=== PATIENT | male | born 1955 | race Two or more races ===

== ENCOUNTER 2018-01-14 10:59 | Inpatient (IN) | payer OTHER ==
[~2018-01-14] VITALS: Ht 170.2 cm; Wt 66.7 kg
--- NOTE | 2018-01-14 11:00 | NUR ---
BIB DT ABDOMINAL PAIN, 07/30, NON RADIATING SINCE TODAY. PATIENT IS AWAKE AND ALERT. APPEARS IN NO DISTRESS. SKIN IS WARM TO TOUCH AND NON DIAPHPORETIC. PATIENT IS AFEBRILE. VSS. LAST HD YESTERDAY.
[2018-01-14 11:40] LABS: BASOPHILS % (AUTO) 0.2 % (0.0-2.0); EOSINOPHILS % (AUTO) 0.5 % (0.0-6.0); HEMATOCRIT 35 % (39-51); HEMOGLOBIN 12.3 g/dL (13.5-17.5); LYMPHOCYTES # (AUTO) 1.2 /CMM (0.8-4.8); LYMPHOCYTES % (AUTO) 9.4 % (20.0-44.0); MEAN CORPUSCULAR HGB CONC 35 g/dl (31.0-36.0); MEAN CORPUSCULAR VOLUME 93 fL (80-96); MONOCYTES # (AUTO) 0.7 /CMM (0.1-1.30); MONOCYTES % (AUTO) 5.6 % (2.0-12.0); NEUTROPHILS # (AUTO) 11.2 /CMM (1.8-8.9); NEUTROPHILS % (AUTO) 84.3 % (43.0-81.0); PLATELET COUNT (AUTO) 234 /CMM (150-450); RDW COEFFICIENT OF VARIATION 14.3 (11.5-15.0); WHITE BLOOD COUNT (AUTO) 13.2 K/uL (4.3-11.0)
[2018-01-14] MEDS ORDERED: MORPHINE SULFATE INJ 4 MG/ML DISP.SYRIN ONE ×2 (11:41→12:46)
[2018-01-14] MEDS ORDERED: ONDANSETRON HCL/PF 4 MG/2 ML VIAL ONE (11:41)
[2018-01-14 11:55] LABS: INR 0.86 (0.85-1.15)
[2018-01-14] MEDS ORDERED: MORPHINE SULFATE INJ 2 MG/ML DISP.SYRIN IV ONE ×2 (12:00→13:00)
[2018-01-14] MEDS ORDERED: ONDANSETRON HCL/PF 4 MG/2 ML VIAL IVP ONE (12:00)
[2018-01-14] MEDS ORDERED: IV NS 0.9% 1,000 ML BAG IV ONE (12:00)
[2018-01-14 12:02] LABS: ALANINE AMINOTRANSFERASE 48 U/L (12-78); ALBUMIN 4.2 g/dL (3.4-5.0); ALKALINE PHOSPHATASE 123 U/L (46-116); ASPARTATE AMINOTRANSFERASE 58 U/L (15-37); BILIRUBIN,DIRECT 0.3 mg/dL (0.0-0.2); CALCIUM, SERUM 10.3 mg/dL (8.5-10.1); CARBON DIOXIDE 24 mmol/L (21-32); CHLORIDE 93 mmol/L (98-107); LIPASE 111 U/L (73-393); POTASSIUM 4.6 mmol/L (3.5-5.1); SODIUM SERUM 132 mmol/L (136-145); TOTAL PROTEIN, SERUM 8.8 g/dL (6.4-8.2); UREA NITROGEN, BLOOD 45 mg/dL (7-18)
[2018-01-14 12:04] LABS: GLUCOSE 388 mg/dL (74-106)
[2018-01-14 12:05] LABS: TROPONIN I < 0.017 ng/mL (0.00-0.056)
[2018-01-14 12:12] LABS: APPEARANCE,URINE Clear (CLEAR); BILIRUBIN,URINE Negative (NEGATIVE); BLOOD, URINE Trace-lysed Ery/uL (NEGATIVE); COLOR,URINE Yellow (YELLOW); KETONES,URINE Negative (NEGATIVE); LEUKOCYTE ESTERASE ,URINE Negative (NEGATIVE); NITRITE, URINE Negative (NEGATIVE); PH,URINE 8.5 (5.0-8.0); PROTEIN,URINE >=300 mg/dl (NEGATIVE); UGLUCOSE 250 MG/DL mg/dL (NEGATIVE); UROBILINOGEN,URINE 0.2 EU/dL (0.2)
[2018-01-14] MEDS ORDERED: INSULIN REGULAR, HUMAN 100 UNIT/ML 10 ML VIAL ONE (12:14)
[2018-01-14 12:21] LABS: BACTERIA,URINE None seen /HPF (None Seen); WBC,URINE 0-3 /HPF (0-3)
[2018-01-14 12:22] LABS: HYALINE CASTS, URINE Rare /LPF (None Seen); SPERM,URINE Few /HPF (None Seen); SQUAMOUS EPITHELIAL CELL,UR Few /HPF (None Seen)
[2018-01-14] MEDS ORDERED: INSULIN REGULAR, HUMAN 100 UNIT/ML 10 ML VIAL SQ ONE (12:30)
[2018-01-14] MEDS ORDERED: MORPHINE SULFATE INJ 2 MG/ML DISP.SYRIN ONE (12:46)
[2018-01-14] MEDS ORDERED: PIPERACILLIN /TAZOBACTAM 3.375 G in IV D5W 50 ML IV STA (13:08)
--- NOTE | 2018-01-14 13:41 | NUR ---
CALLED DR CAPONE [facility] [employer].
[2018-01-14] MEDS ORDERED: CALC667C6 PO (14:05)
[2018-01-14] MEDS ORDERED: INSU100I26 SQ (14:05)
[2018-01-14] MEDS ORDERED: PANT40TA4 PO (14:05)
[2018-01-14] MEDS ORDERED: CARV12.52 PO (14:05)
[2018-01-14] MEDS ORDERED: CHOL200026 PO (14:05)
[2018-01-14] MEDS ORDERED: FURO40TA5 PO (14:05)
[2018-01-14] MEDS ORDERED: FOLI1TAB16 PO (14:05)
[2018-01-14] MEDS ORDERED: ASPI-1169 PO (14:05)
[2018-01-14] MEDS ORDERED: AMLO10TA6 PO (14:05)
[2018-01-14] MEDS ORDERED: ALLO100T PO (14:05)
[2018-01-14] MEDS ORDERED: HYDR-4076 PO (14:05)
[2018-01-14] MEDS ORDERED: MAGNESIUM HYDROXIDE 30 ML UDC PO PRN (14:30)
[2018-01-14] MEDS ORDERED: MAG HYDROX/AL HYDROX/SIMETH 30 ML UDC PO PRN (14:30)
[2018-01-14] MEDS ORDERED: ACETAMINOPHEN 325 MG TABLET PO PRN (14:30)
[2018-01-14] MEDS ORDERED: Z GUARD REMEDY 2 OZ OINT TP PRN (14:30)
[2018-01-14] MEDS ORDERED: DEXTROSE 50%-WATER 50 ML DISP.SYRIN IV PRN (14:30)
[2018-01-14 15:00] VITALS: BP 137/65
--- NOTE | 2018-01-14 15:00 | NUR ---
ms director international notes Admitted a 62 years old male patient who came in due to cholecystitis. patient is admitted by Dr. zimmerman, all orders on file. Skin assessment done and no skin issues noted. Patient is NPO due to diagnosis. Patient is alert and oriented x 4, serbian speaking only, caregiver Janeth at bedside. IV intact and patent, Right chest wall HD cath, dressing intact. patient in pain noted, received pain mediation in the ER. Informed MD for pain medication IV and ordered Morphine 2 mg Q4hrs PRN for pain. All orders carried out and noted. Keep patient clean and comfortable in bed, call light with in patient reach.
[2018-01-14 16:00] VITALS: BP 137/65
[2018-01-14] MEDS: MORPHINE SULFATE INJ 4 MG/ML DISP.SYRIN IV PRN ×2 (16:36→20:36)
[2018-01-14] MEDS: BLOOD SUGAR DIAGNOSTIC 1 EACH STRIP VI SCH ×2 (17:37→21:34)
[2018-01-14] MEDS: ZOSYN IVPB 2.25 G in IV D5W 50ml IV SCH ×2 (17:37→23:02)
--- NOTE | 2018-01-14 18:00 | NUR ---
ms rn notes Blood sugar checked 430 informed MD and per MD okay to give 15 units even patient is NPO. All orders carried out and noted.
[2018-01-14] MEDS: INSULIN REGULAR, HUMAN 100 UNIT/ML 3 ML VIAL SQ PRN (18:19)
[2018-01-14] MEDS: CALCIUM ACETATE 667 MG TABLET PO SCH (18:30)
--- NOTE | 2018-01-14 19:18 | NUR ---
MS RN NOTES: DR. CAPONE AT BEDSIDE.
--- NOTE | 2018-01-14 19:22 | NUR ---
ms rn closing notes All needs provided, attended, and anticipated. Endorsed to next shift RN to continue care. Patient in stable condition.
--- NOTE | 2018-01-14 19:35 | NUR ---
MS RN NOTES: RECEIVED PT IN BED AND IS AWAKE. PT BRAZILIAN SPEAKING ONLY. PT A/OX4. PT ON ROOM AIR AND TOLERATING WELL. PT HAS IV AND IS PATENT AND INTACT. CHECKED BLOOD SUGAR PER AM CHARGE NURSE'S REQUEST. BLOOD SUGAR LESS THAN 400. WILL RECHECK AGAIN ORDERED. CALL LIGHT WITHIN PT'S REACH. BED KEPT NI LOW, LOCKED POSITION, AND SIDE RAILS X 2UP. WILL CONTINUE TO MONITOR PT. Addendum: 01/14/18 at 1944 by MARGIE RICHARDS RN PT ALSO HAS R CHEST WALL HD CATH AND IS INTACT. PT INFORMED THAT HE IS NPO.
[2018-01-14 20:00] VITALS: BP 109/68
--- NOTE | 2018-01-14 20:36 | NUR ---
MS RN NOTES: PT COMPLAINING OF 10/10 ABDOMEN PAIN. PT WAS ADMINISTERED MORPHINE 2MG VIA IV. WILL CONTINUE TO MONITOR PT.
--- NOTE | 2018-01-14 21:56 | NUR ---
MS RN NOTES: TALKED TO DR. LIMA. INFORMED HIM BLOOD SUGAR 383. INFORMED HIM PT IS NPO AND HAS PROCEDURE TOMORROW 1600 FOR LAP VINEY. PT NOT ON ANY FLUIDS. PER CLARENCE, GIVE TOTAL OF 20 UNITS. WILL CONTINUE TO MONITOR PT. NO OTHER NEW ORDERS.
[2018-01-14] MEDS ORDERED: ZOLPIDEM TARTRATE 5 MG TABLET PO PRN (22:00)
[2018-01-14] MEDS: *INSULIN REGULAR(HUMULIN R)HUM 100 UNIT/ML VIAL SQ PRN (22:00)
--- NOTE | 2018-01-14 22:06 | NUR ---
RN NOTES: HAD TO MANUALLY ADMIN INSULIN SINCE "HS" ONE WOULD NOT SCAN.
--- NOTE | 2018-01-14 22:20 | NUR ---
RN NOTES: HAD TO MANUALLY ADMIN ADDITION 10 UNITS OF INSULIN SINCE IT WON'T SCAN AND IT IS 1 TIME ORDER PER CLARENCE.
[2018-01-14] MEDS ORDERED: INSULIN REGULAR, HUMAN 100 UNIT/ML 3 ML VIAL SQ ONE (22:30)
[2018-01-15 00:55] VITALS: BP 101/60
[2018-01-15] MEDS: MORPHINE SULFATE INJ 4 MG/ML DISP.SYRIN IV PRN ×2 (01:00→06:16)
--- NOTE | 2018-01-15 01:02 | NUR ---
MS RN NOTES: PT COMPLAINING OF 10/10 ABDOMEN PAIN. PT WAS ADMINISTERED MORPHINE 2MG IV. WILL CONTINUE TO MONITOR PT.
[2018-01-15] MEDS: ONDANSETRON HCL/PF 4 MG/2 ML VIAL IVP PRN ×2 (03:24→22:23)
--- NOTE | 2018-01-15 03:25 | NUR ---
RN NOTES: PT COMPLAINING OF NAUSEA. PT WAS ADMINISTERED ZOFRAN IV. WILL CONTINUE TO MONITOR PT.
--- NOTE | 2018-01-15 03:48 | NUR ---
RN NOTES: CONSENTS FOR PROCEDURE, ANESTHESIA, AND BLOOD TRANSFUSION OBTAINED AND PLACED IN CHART.
[2018-01-15] MEDS: ZOSYN IVPB 2.25 G in IV D5W 50ml IV SCH ×4 (05:01→23:02)
[2018-01-15] MEDS: BLOOD SUGAR DIAGNOSTIC 1 EACH STRIP VI SCH ×4 (06:00→21:01)
[2018-01-15] MEDS: INSULIN REGULAR, HUMAN 100 UNIT/ML 3 ML VIAL SQ PRN (06:03)
--- NOTE | 2018-01-15 06:04 | NUR ---
RN NOTES: BLOOD SUGAR THIS AM WAS 259. NO INSULIN ADMINISTERED. PT IS NPO AND IS TO GO TO SURGERY AT 1600. CHARGE NURSE AWARE. WILL CONTINUE TO MONITOR PT.
--- NOTE | 2018-01-15 06:18 | NUR ---
RN NOTES: PT COMPLAINING OF 10/10 ABDOMEN PAIN. PT WAS ADMINISTERED MORPHINE 2MG IV. WILL CONTINUE TO MONITOR PT.
[2018-01-15 06:57] LABS: BASOPHILS % (AUTO) 0.1 % (0.0-2.0); EOSINOPHILS % (AUTO) 0.1 % (0.0-6.0); HEMATOCRIT 30 % (39-51); HEMOGLOBIN 10.5 g/dL (13.5-17.5); LYMPHOCYTES # (AUTO) 1.1 /CMM (0.8-4.8); LYMPHOCYTES % (AUTO) 9.9 % (20.0-44.0); MEAN CORPUSCULAR HGB CONC 35 g/dl (31.0-36.0); MEAN CORPUSCULAR VOLUME 94 fL (80-96); MONOCYTES # (AUTO) 0.6 /CMM (0.1-1.30); MONOCYTES % (AUTO) 5.6 % (2.0-12.0); NEUTROPHILS # (AUTO) 9.1 /CMM (1.8-8.9); NEUTROPHILS % (AUTO) 84.3 % (43.0-81.0); PLATELET COUNT (AUTO) 196 /CMM (150-450); RDW COEFFICIENT OF VARIATION 15.9 (11.5-15.0); RED BLOOD CELL COUNT(AUTO) 3.18 MIL/uL (4.5-6.0); WHITE BLOOD COUNT (AUTO) 10.8 K/uL (4.3-11.0)
[2018-01-15 07:13] LABS: CALCIUM, SERUM 9.5 mg/dL (8.5-10.1); MAGNESIUM 2.7 mg/dL (1.8-2.4); PHOSPHORUS 3.5 mg/dL (2.5-4.9); POTASSIUM 5.9 mmol/L (3.5-5.1)
[2018-01-15] MEDS: PANTOPRAZOLE 40 MG TABLET.DR PO SCH (07:30)
--- NOTE | 2018-01-15 07:32 | NUR ---
MS RN CLOSING NOTES: ALL NEEDS WERE ATTENDED AND ANTICIPATED FOR. PT IS ASLEEP AT THIS TIME. PT CYPRIOT SPEAKING ONLY. PT ON ROOM AIR AND TOLERATING WELL. PT HAS IV AND IS PATENT AND INTACT. CURRENTLY S/L. PT HAS BEEN NPO. PT TO GO TO PROCEDURE AT 1600. CALL LIGHT WITHIN PT'S REACH. BED KEPT IN LOW, LOCKED POSITION, AND SIDE RAILS X 2UP. BED ALARM ACTIVATED. ENDORSED TO AM NURSE FOR JOSIANE.
--- NOTE | 2018-01-15 07:33 | NUR ---
RN OPENING NOTES RECEIVED PATIENT IN BED AWAKE, A/OX3, DIVEHI SPEAKING ONLY. PATIENT ON ROOM AIR AND TOLERATING WELL. NO ACUTE DISTRESS, NO SOB NOTED. IV SITE PATENT AND INTACT. KEPT PATIENT SAFE AND COMFORTABLE IN BED. CALL LIGHT WITHIN REACH. BED KEPT IN LOW, LOCKED POSITION, AND SIDE RAILS X 2UP. WILL CONTINUE TO MONITOR ACCORDINGLY.
[2018-01-15 08:00] VITALS: BP 88/48
[2018-01-15 08:30] VITALS: BP 93/57
[2018-01-15] MEDS: ASPIRIN 81 MG TAB.CHEW PO SCH (08:40)
[2018-01-15] MEDS: CARVEDILOL 12.5 MG TABLET PO SCH ×2 (08:40→17:00)
[2018-01-15] MEDS: hydrALAZINE HCL 25 MG TABLET PO SCH ×3 (08:40→17:00)
[2018-01-15] MEDS: AMLODIPINE BESYLATE 10 MG TABLET PO SCH (08:41)
[2018-01-15] MEDS: FOLIC ACID 1 MG TABLET PO SCH (08:41)
[2018-01-15] MEDS: CALCIUM ACETATE 667 MG TABLET PO SCH ×3 (08:42→18:10)
[2018-01-15] MEDS: CHOLECALCIFEROL 1,000 UNIT TABLET (VIT D3) PO SCH (08:42)
[2018-01-15] MEDS: ALLOPURINOL 100 MG TABLET PO SCH (08:43)
[2018-01-15 10:26] LABS: CALCIUM, SERUM 9.3 mg/dL (8.5-10.1); CREATININE 4.3 mg/dL (0.6-1.3); POTASSIUM 5.5 mmol/L (3.5-5.1)
[2018-01-15] MEDS: ALBUMIN 25% 25 GM in PREMIX 1 EA IV PRN ×2 (11:21→11:22)
--- NOTE | 2018-01-15 11:23 | NUR ---
RN NOTES PATIENT ONGOING DIALYSIS. BP ON THE LOW SIDE. HD NURSE ADMINISTERED 200ML OF ALBUMIN 25%. WILL MONITOR ACCORDINGLY
[2018-01-15 13:51] LABS: CALCIUM, SERUM 9.1 mg/dL (8.5-10.1); CREATININE 2.7 mg/dL (0.6-1.3); POTASSIUM 3.9 mmol/L (3.5-5.1)
--- NOTE | 2018-01-15 14:50 | NUR ---
RN NOTES INFORMED OR NURSE REGARDING PATIENT'S LOW BLOOD PRESSURE. OR NURSE WILL NOTIFY DR GOLDSMITH.
--- NOTE | 2018-01-15 15:00 | NUR ---
RN NOTES PATIENT TRANSPORTED TO SURGERY, PICKED UP BY OR NURSE AND TRANSPORTER.
[2018-01-15] MEDS ORDERED: ROCURONIUM BROMIDE 50 MG/5 ML ONE (15:24)
[2018-01-15] MEDS ORDERED: BUPIVACAINE 0.25% 75 MG/30 ML VIAL ONE (15:26)
[2018-01-15] MEDS ORDERED: MORPHINE SULFATE INJ 4 MG/ML DISP.SYRIN IV PRN (17:30)
[2018-01-15 17:35] VITALS: BP 110/53
--- NOTE | 2018-01-15 17:35 | NUR ---
RN NOTES PATIENT CAME BACK FROM LAP [facility]I SURGERY. NO ACUTE DISTRESS, NO SOB NOTED. HALEY DRAIN IN PLACE. PATIENT VS STABLE. NEW ORDERS NOTED AND CARRIED OUT. WILL MONITOR ACCORDINGLY.
[2018-01-15 18:03] LABS: BASOPHILS % (AUTO) 0.1 % (0.0-2.0); EOSINOPHILS % (AUTO) 0.1 % (0.0-6.0); HEMATOCRIT 23 % (39-51); HEMOGLOBIN 8.2 g/dL (13.5-17.5); LYMPHOCYTES # (AUTO) 0.6 /CMM (0.8-4.8); LYMPHOCYTES % (AUTO) 6.6 % (20.0-44.0); MEAN CORPUSCULAR HGB CONC 35 g/dl (31.0-36.0); MEAN CORPUSCULAR VOLUME 95 fL (80-96); MONOCYTES # (AUTO) 0.3 /CMM (0.1-1.30); MONOCYTES % (AUTO) 3.5 % (2.0-12.0); NEUTROPHILS # (AUTO) 8.8 /CMM (1.8-8.9); NEUTROPHILS % (AUTO) 89.7 % (43.0-81.0); PLATELET COUNT (AUTO) 156 /CMM (150-450); RED BLOOD CELL COUNT(AUTO) 2.44 MIL/uL (4.5-6.0); WHITE BLOOD COUNT (AUTO) 9.8 K/uL (4.3-11.0)
--- NOTE | 2018-01-15 19:18 | NUR ---
RN OPENING NOTES: RECEIVED PT IN BED AND IS ON ROOM AIR AND TOLERATING WELL. PT IS POST OP LAP CHOLY. 3 INCISION BANDAGE SITES NOTED IN ABDOMEN. PT ALSO HAS HALEY DRAIN AND SEROUS FLUID NOTED. PT HAS IV AND IS PATENT AND INTACT. PT CURRENTLY S/L. PT IS ALGERIAN SPEAKING ONLY AND UNDERSTAND. PT IS A/OX3. BED ALARM ACTIVATED. CALL LIGHT WITHIN PT'S REACH. BED KEPT IN LOW, LOCKED POSITION, AND SIDE RAILS X 2UP. WILL CONTINUE TO MONITOR PT. Addendum: 01/15/18 at 2044 by MARGIE RICHARDS RN PT ALSO HAS R CHEST WALL HD CATH IN TACT.
--- NOTE | 2018-01-15 19:30 | NUR ---
RN CLOSING NOTES PATIENT IN STABLE CONDITION. ALL NEEDS ATTENDED AND PROVIDED. BED IN LOW LOCKED POSITION, SIDERAILS UPX2. CALL LIGHT IN REACH. ENDORSED TO NIGHT RN FOR JOSIANE.
[2018-01-15 20:00] VITALS: BP 109/56
[2018-01-15] MEDS: *INSULIN REGULAR(HUMULIN R)HUM 100 UNIT/ML VIAL SQ PRN (21:28)
--- NOTE | 2018-01-15 21:30 | NUR ---
ROBERT NOTES: BLOOD SUGAR IS 246. 4 UNITS OF INSULIN WAS ADMINISTERED. WILL CONTINUE TO MONITOR PT. Addendum: 01/15/18 at 2132 by MARGIE RICHARDS RN HAD TO MANUALLY ADMINISTER. BAR GUN NOT SCANNING FOR "HS".
[2018-01-16 03:10] VITALS: BP 137/64
[2018-01-16] MEDS: HYDROCODONE/APAP 5/325MG 1 EACH TABLET PO PRN ×2 (03:12→09:53)
--- NOTE | 2018-01-16 03:13 | NUR ---
RN NOTES: PT COMPLAINING OF 5/10 ABDOMINAL PAIN. PT WAS ADMINISTERED NORCO 5.WILL CONTINUE TO MONITOR PT.
[2018-01-16] MEDS: ZOSYN IVPB 2.25 G in IV D5W 50ml IV SCH ×4 (05:02→23:49)
[2018-01-16 05:49] VITALS: BP 116/60
--- NOTE | 2018-01-16 05:50 | NUR ---
RN NOTES: PT COMPLAINING OF 10/10 ABDOMINAL PAIN. PT WAS ADMINISTERED MORPHINE. WILL CONTINUE TO MONITOR.
[2018-01-16] MEDS: MORPHINE SULFATE INJ 4 MG/ML DISP.SYRIN IV PRN (05:51)
[2018-01-16] MEDS: BLOOD SUGAR DIAGNOSTIC 1 EACH STRIP VI SCH ×4 (06:00→21:34)
[2018-01-16] MEDS: INSULIN REGULAR, HUMAN 100 UNIT/ML 3 ML VIAL SQ PRN ×3 (06:31→16:41)
--- NOTE | 2018-01-16 06:32 | NUR ---
RN NOTES: BLOOD SUGAR 270. 9 UNITS OF INSULIN WAS ADMINISTERED. WILL CONTINUE TO MONITOR PT.
--- NOTE | 2018-01-16 06:49 | NUR ---
MS RN CLOSING NOTES: ALL NEEDS WERE ATTENDED AND ANTICIPATED FOR. PT ON ROOM AIR AND TOLERATING WELL. PT HAS 3 INCISION SITES FROM LAP CHOLY. PT ALSO HALEY DRAIN AND OUTPUT WAS 55ML SANGUINEOUS FLUID. PT HAS IV AND IS INTACT. PT ALSO HAS R CHEST WALL AND IS INTACT. BED ALARM ACTIVATED. CALL LIGHT WITHIN PT'S REACH. BED KEPT IN LOW, LOCKED POSITION, AND SIDE RAILS X 2UP. WILL ENDORSE TO AM NURSE FOR JOSIANE.
[2018-01-16 07:24] LABS: BASOPHILS % (AUTO) 0.2 % (0.0-2.0); EOSINOPHILS % (AUTO) 0.2 % (0.0-6.0); HEMATOCRIT 22 % (39-51); HEMOGLOBIN 7.5 g/dL (13.5-17.5); LYMPHOCYTES # (AUTO) 0.9 /CMM (0.8-4.8); LYMPHOCYTES % (AUTO) 9.8 % (20.0-44.0); MEAN CORPUSCULAR HGB CONC 35 g/dl (31.0-36.0); MEAN CORPUSCULAR VOLUME 95 fL (80-96); MONOCYTES # (AUTO) 0.4 /CMM (0.1-1.30); NEUTROPHILS # (AUTO) 7.5 /CMM (1.8-8.9); NEUTROPHILS % (AUTO) 84.8 % (43.0-81.0); PLATELET COUNT (AUTO) 172 /CMM (150-450); RDW COEFFICIENT OF VARIATION 16.3 (11.5-15.0); RED BLOOD CELL COUNT(AUTO) 2.29 MIL/uL (4.5-6.0); WHITE BLOOD COUNT (AUTO) 8.8 K/uL (4.3-11.0)
--- NOTE | 2018-01-16 07:33 | NUR ---
MS RN NOTES PATIENT RECEIVED RESTING INSIDE ROOM, SLEEPING, EASILY AROUSABLE TROUGH VERBAL AND TACTILE STIMULI. BREATHING EVEN AND UNLABORED. NO SOB OR ACUTE DISTRESS NOTED. DENIES ANY PAIN OR DISCOMFORT. PATIENT CALM AND RELAXED. S/P LAP CHOLECYSTECTOMY. HALEY DRAIN IN PLACE. WILL CONTINUE TO MONITOR. BED LOCKED AND IN LOW POSITION, BED ALARM ON. BILATERAL UPPER SIDE RAILS UP AND LOCKED. WILL CONTINUE TO MONITOR
[2018-01-16 07:38] LABS: CALCIUM, SERUM 8.7 mg/dL (8.5-10.1); CREATININE 4.8 mg/dL (0.6-1.3); MAGNESIUM 2.4 mg/dL (1.8-2.4); PHOSPHORUS 5.8 mg/dL (2.5-4.9); POTASSIUM 5.4 mmol/L (3.5-5.1)
[2018-01-16 08:00] VITALS: BP 109/59
[2018-01-16] MEDS: ASPIRIN 81 MG TAB.CHEW PO SCH (08:13)
[2018-01-16] MEDS: CHOLECALCIFEROL 1,000 UNIT TABLET (VIT D3) PO SCH (08:13)
[2018-01-16] MEDS: ALLOPURINOL 100 MG TABLET PO SCH (08:13)
[2018-01-16] MEDS: PANTOPRAZOLE 40 MG TABLET.DR PO SCH (08:13)
[2018-01-16] MEDS: CALCIUM ACETATE 667 MG TABLET PO SCH ×3 (08:13→16:36)
[2018-01-16] MEDS: FOLIC ACID 1 MG TABLET PO SCH (08:13)
[2018-01-16] MEDS: hydrALAZINE HCL 25 MG TABLET PO SCH ×3 (08:14→16:36)
[2018-01-16] MEDS: CARVEDILOL 12.5 MG TABLET PO SCH ×2 (08:14→16:36)
[2018-01-16] MEDS: AMLODIPINE BESYLATE 10 MG TABLET PO SCH (08:14)
--- NOTE | 2018-01-16 09:30 | NUR ---
MS RN NOTES PATIENT SEEN AND EXAMINED BY DR. ALVARADO. MADE AWARE OF POTASSIUM LEVEL OF 5.4. NO NEW ORDERS GIVEN AT THIS TIME. WILL CONTINUE TO MONITOR
[2018-01-16] MEDS ORDERED: ONDANSETRON 4 MG TAB.RAPDIS PO PRN (12:00)
[2018-01-16 12:03] LABS: ALBUMIN 3.2 g/dL (3.4-5.0); BILIRUBIN,DIRECT 0.6 mg/dL (0.0-0.2); BILIRUBIN,TOTAL 1.3 mg/dL (0.2-1.0); TOTAL PROTEIN, SERUM 6.8 g/dL (6.4-8.2)
--- NOTE | 2018-01-16 12:56 | NUR ---
MS RN NOTES PATIENT SEEN AND EXAMINED BY DR. YENNIFER CASTREJON. VERBALIZED PATIENT MAY HAVE HD TODAY. NEW ORDERS NOTED AND CARRIED OUT.
[2018-01-16] MEDS ORDERED: EPOETIN ALFA (10,000 UNIT) 10,000 UNIT/ML VIAL SQ ONE (13:00)
--- NOTE | 2018-01-16 13:13 | NUR ---
MS RN NOTES PATIENT WITH NEW ORDER FOR EPOGEN 10,000 UNITS. ORDER NOTED AND CARRIED OUT. MEDICATION ADMINISTERED ORDERED. WILL CONTINUE TO MONITOR
[2018-01-16 16:00] VITALS: BP 109/58
--- NOTE | 2018-01-16 18:30 | NUR ---
MS RN NOTES PATIENT RESTING INSIDE ROOM, AWAKE, ALERT AND ORIENTED. VERBALLY RESPONSIVE AND RESPONDS TO VERBAL AND TACTILE STIMULI PATIENT BREATHING EVEN AND UNLABORED. NO SOB OR ACUTE DISTRESS NOTED AT THIS TIME. PATIENT DENIES ANY PAIN OR DISCOMFORT. NO CHANGES IN LOC NOTED. PATIENT AFEBRILE, SKIN DRY AND WARM TO TOUCH. CONTINUE WITH HALEY DRAIN, WITH OUTPUT OF 185 CC DURING THIS SHIFT. IV SITE ON RIGHT AC INTACT AND PATENT, NO SWELLING OR BLEEDING NOTED. BED LOCKED AND IN LOW POSITION. BILATERAL UPPER SIDE RAILS UP AND LOCKED. CALL LIGHT WITHIN EASY REACH. WILL ENDORSE TO INCOMING SHIFT FOR JOSIANE
--- NOTE | 2018-01-16 19:40 | NUR ---
RN OPENING NOTES RECEIVED REPORT FROM [facility] ROBERT LINDSEY. FOUND Pt AWAKE, RESTING IN BED. NO S/S OF ACUTE DISTRESS OR SOB NOTED. Pt IS A/OX2-3, MACEDONIAN SPEAKING, WITH SOME ANDORRAN. HALEY DRAIN LOCATED ON RT ABD SIDE; S/P LAP CHOLECYSTECTOMY ON 01/15 (DR. CAPONE). IV ACCESS ON RAC #20G, SL. HD CATH ON RCW. SAFETY MEASURES IN PLACE. BED LOW, LOCKED, HOB ELEVATED, SIDE RAILS UP, CALL LIGHT AND BEDSIDE TABLE WITHIN REACH. WILL CONTINUE TO MONITOR Pt THROUGHOUT THE NIGHT FOR SAFETY.
[2018-01-16 20:00] VITALS: BP 106/54
[2018-01-16] MEDS: *INSULIN REGULAR(HUMULIN R)HUM 100 UNIT/ML VIAL SQ PRN (21:37)
--- NOTE | 2018-01-16 22:20 | NUR ---
RN NOTES HS ACCUCHECK BG 225. ADMINISTERED 4UN OF INSULIN PER SLIDING SCALE.
[2018-01-17] VITALS (10 sets, daily range): BP systolic 89–127; BP diastolic 36–62
--- NOTE | 2018-01-17 06:31 | NUR ---
RN NOTES AC ACCUCHECK BG 165. ADMINISTERED 3UN OF INSULIN PER SLIDING SCALE.
--- NOTE | 2018-01-17 06:40 | NUR ---
RN CLOSING NOTES NO SIGNIFICANT CHANGES IN Pt's CONDITION. NO S/S OF ACUTE DISTRESS OR SOB NOTED DURING THE NIGHT. ALL NEEDS MET AND ATTENDED TO. SAFETY MEASURES IN PLACE. ALL ORDERS CARRIED OUT. HALEY DRAIN OUTPUT 125ML. DARK RED. LEAKING FROM SITE NOTED. REINFORCED WITH EXTRA 4X4 GAUZE SECURED WITH TAPE. WILL ENDORSE TO DAYSHIFT RN FOR Pt's JOSIANE.
[2018-01-17] MEDS: ZOSYN IVPB 2.25 G in IV D5W 50ml IV SCH ×3 (06:47→17:24)
[2018-01-17] MEDS: INSULIN REGULAR, HUMAN 100 UNIT/ML 3 ML VIAL SQ PRN ×2 (06:54→17:27)
[2018-01-17] MEDS: BLOOD SUGAR DIAGNOSTIC 1 EACH STRIP VI SCH ×4 (07:12→21:36)
[2018-01-17 07:18] LABS: BASOPHILS # (AUTO) 0.1 /CMM (0.0-0.2); BASOPHILS % (AUTO) 0.6 % (0.0-2.0); EOSINOPHILS % (AUTO) 4.6 % (0.0-6.0); LYMPHOCYTES # (AUTO) 1.3 /CMM (0.8-4.8); LYMPHOCYTES % (AUTO) 15.4 % (20.0-44.0); MEAN CORPUSCULAR HGB CONC 35 g/dl (31.0-36.0); MEAN CORPUSCULAR VOLUME 96 fL (80-96); MONOCYTES # (AUTO) 0.5 /CMM (0.1-1.30); MONOCYTES % (AUTO) 5.2 % (2.0-12.0); NEUTROPHILS # (AUTO) 6.5 /CMM (1.8-8.9); NEUTROPHILS % (AUTO) 74.2 % (43.0-81.0); PLATELET COUNT (AUTO) 191 /CMM (150-450); RDW COEFFICIENT OF VARIATION 16.6 (11.5-15.0); RED BLOOD CELL COUNT(AUTO) 2.08 MIL/uL (4.5-6.0); WHITE BLOOD COUNT (AUTO) 8.7 K/uL (4.3-11.0)
[2018-01-17 07:22] LABS: ALBUMIN 2.7 g/dL (3.4-5.0); CALCIUM, SERUM 9.1 mg/dL (8.5-10.1); CREATININE 6.9 mg/dL (0.6-1.3); POTASSIUM 4.9 mmol/L (3.5-5.1); TOTAL PROTEIN, SERUM 6.6 g/dL (6.4-8.2)
[2018-01-17 07:39] LABS: HEMATOCRIT 20 % (39-51)
[2018-01-17] MEDS: CHOLECALCIFEROL 1,000 UNIT TABLET (VIT D3) PO SCH (08:45)
[2018-01-17] MEDS: PANTOPRAZOLE 40 MG TABLET.DR PO SCH (08:46)
[2018-01-17] MEDS: CARVEDILOL 12.5 MG TABLET PO SCH ×2 (08:46→17:23)
[2018-01-17] MEDS: CALCIUM ACETATE 667 MG TABLET PO SCH ×3 (08:46→17:22)
[2018-01-17] MEDS: FOLIC ACID 1 MG TABLET PO SCH (08:46)
[2018-01-17] MEDS: ALLOPURINOL 100 MG TABLET PO SCH (08:46)
[2018-01-17] MEDS: ASPIRIN 81 MG TAB.CHEW PO SCH (09:00)
[2018-01-17] MEDS: AMLODIPINE BESYLATE 10 MG TABLET PO SCH (09:00)
[2018-01-17] MEDS: hydrALAZINE HCL 25 MG TABLET PO SCH ×3 (09:00→17:00)
--- NOTE | 2018-01-17 09:00 | NUR ---
MS RN NOTES PATIENT IN BED RESTING NO SOB OR ACUTE DISTRESS NOTED. PATIENT ALERT, ORIENTED X4. PERIPHERAL IV INTACT PATENT. BED IN LOW LOCKED POSITION. CALL LIGHT WITHIN REACH. PATIENT WITH HALEY DRAIN NOTED WITH SANGANOUS DRAINAGE AND H/H OF 7.0/21 DR. CAPONE MADE AWARE ORDERS TO TRANSFUSE 2 UNITS OF RBC. ORDERS NOTED AND CARRIED OUT.
[2018-01-17] MEDS: HYDROCODONE/APAP 5/325MG 1 EACH TABLET PO PRN ×2 (10:13→21:40)
--- NOTE | 2018-01-17 14:15 | NUR ---
MS RN NOTES PATIENT ON HD TOLERATING WELL. ORDER FOR 2 UNITS OF PRBC OK TO GIVE WITH DIALYSIS.
--- NOTE | 2018-01-17 14:18 | NUR ---
MS RN NOTES PATIENT STARTED ON PRBS WITH HD TOLERATING WELL. VS WNL WILL CONTINUE TO MONITOR.
--- NOTE | 2018-01-17 14:40 | NUR ---
MS RN NOTES PATIENT COMPLETED ONE UNITS OF PRBC WITH HD TOLERATED WELL. STARTED ON 2ND UNIT WILL CONTINUE TO MONITOR. VS WNL. NO REACTION NOTED.
--- NOTE | 2018-01-17 18:00 | NUR ---
MS RN NOTES PATIENT SEEN AND EVALUATED BY DR. CAPONE ORDERS NOTED AND CARRIED OUT. CONFIRMED WITH DR. CAPONE OK TO CHANGE DRESSING DUE TO DRESSING BEING SOILED. DRESSING CHANGED ORDERED.
--- NOTE | 2018-01-17 18:41 | NUR ---
MS RN NOTES PATIENT IN BED RESTING NO SOB OR ACUTE DISTRESS NOTED. ALL DUE MEDICATIONS ADMINISTERED. ALL NEEDS MET. PERIPHERAL IV INTACT PATENT. PAIN CONTROLLED WITH MEDICATIONS. HALEY DRAIN INTACT PATENT. WILL ENDORSE TO PM SHIFT JOSIANE.
--- NOTE | 2018-01-17 19:10 | NUR ---
MS/RN OPENING NOTES PT RECEIVED AWAKE, HOB ELEVATED. COLOMBIAN SPEAKING, A/OX3. ON ROOM AIR, BREATHING EVEN AND UNLABORED. NO SOB OR ACUTE DISTRESS NOTED AT THIS TIME. NOTES PAIN TO BE 3-4/10 TO ABDOMEN HOWEVER REFUSING PAIN MEDICATION AT THIS TIME. ABDOMINAL INCISION DRESSINGS C/D/I, HALEY DRAIN NOTED WITH BLOODY OUTPUT TO RIGHT LOWER INCISION SITE. IV TO RAC PATENT AND INTACT. RCW HD CATH WITH DRESSING C/D/I. BED IN LOW/LOCKED POSITION WITH CALL LIGHT IN REACH. SIDE RAILS UPX2. WILL CONTINUE TO MONITOR
[2018-01-17] MEDS: *INSULIN REGULAR(HUMULIN R)HUM 100 UNIT/ML VIAL SQ PRN (21:46)
[2018-01-18] MEDS: ZOSYN IVPB 2.25 G in IV D5W 50ml IV SCH ×5 (00:07→23:05)
[2018-01-18] MEDS: BLOOD SUGAR DIAGNOSTIC 1 EACH STRIP VI SCH ×4 (07:03→21:12)
[2018-01-18] MEDS: INSULIN REGULAR, HUMAN 100 UNIT/ML 3 ML VIAL SQ PRN ×3 (07:04→17:34)
--- NOTE | 2018-01-18 07:37 | NUR ---
MS RN: INITIAL NOTE RECEIVED PT A/OX3. ON MS. USES DIAPER AND URINAL. CONTINENT. BEDREST. 3 ABD INCISIONS FROM S/P CHOLEY. ON CCHO DIET. R AC #20 HL. SITE CLEAR AND PATENT. NO REDNESS OR BLEEDING NOTED. NO PAIN NOTED. NO DISTRESS NOTED. NO SOB NOTED. ON 2L NC SATING AT 94%. LAST HD ON 01/17/18. 200ML OUTPUT. RESTING COMFORTABLY IN BED. CALL LIGHT WITHIN REACH.
--- NOTE | 2018-01-18 07:39 | NUR ---
MS/RN CLOSING NOTES PT ASLEEP, EASILY AROUSABLE TO NAME. HOB SEMI FOWLERS. ROMANIAN SPEAKING, A/OX3. ON 2LPM O2 VIA NC, BREATHING EVEN AND UNLABORED. NO SOB OR ACUTE DISTRESS NOTED AT THIS TIME. ABDOMINAL INCISION DRESSINGS C/D/I, HALEY DRAIN NOTED WITH BLOODY OUTPUT TO RIGHT LOWER INCISION SITE, OUTPUT 100ML. IV TO RAC PATENT AND INTACT. RCW HD CATH WITH DRESSING C/D/I. BED IN LOW/LOCKED POSITION WITH CALL LIGHT IN REACH. SIDE RAILS UPX2. KEPT PT COMFORTABLE DURING SHIFT. ALL NEEDS MET. ENDORSED TO DAY SHIFT RN JOSIANE.
[2018-01-18 08:00] VITALS: BP 119/61
[2018-01-18] MEDS: CHOLECALCIFEROL 1,000 UNIT TABLET (VIT D3) PO SCH (08:22)
[2018-01-18] MEDS: FOLIC ACID 1 MG TABLET PO SCH (08:22)
[2018-01-18] MEDS: ASPIRIN 81 MG TAB.CHEW PO SCH (08:22)
[2018-01-18] MEDS: ALLOPURINOL 100 MG TABLET PO SCH (08:22)
[2018-01-18] MEDS: PANTOPRAZOLE 40 MG TABLET.DR PO SCH (08:22)
[2018-01-18] MEDS: hydrALAZINE HCL 25 MG TABLET PO SCH ×3 (08:22→17:00)
[2018-01-18] MEDS: CALCIUM ACETATE 667 MG TABLET PO SCH ×3 (08:22→17:24)
[2018-01-18] MEDS: CARVEDILOL 12.5 MG TABLET PO SCH ×2 (08:23→17:00)
[2018-01-18] MEDS: AMLODIPINE BESYLATE 10 MG TABLET PO SCH (08:23)
--- NOTE | 2018-01-18 09:12 | NUR ---
HELD BP MEDS DUE TO SCHEDULE DIALYSIS. BP 119/61 PULSE 77
[2018-01-18] MEDS: HYDROCODONE/APAP 5/325MG 1 EACH TABLET PO PRN ×2 (09:18→21:12)
[2018-01-18 10:16] LABS: BASOPHILS % (AUTO) 0.3 % (0.0-2.0); EOSINOPHILS % (AUTO) 5.2 % (0.0-6.0); HEMATOCRIT 25 % (39-51); HEMOGLOBIN 8.5 g/dL (13.5-17.5); LYMPHOCYTES # (AUTO) 0.7 /CMM (0.8-4.8); LYMPHOCYTES % (AUTO) 11.5 % (20.0-44.0); MEAN CORPUSCULAR HGB CONC 35 g/dl (31.0-36.0); MEAN CORPUSCULAR VOLUME 91 fL (80-96); MONOCYTES # (AUTO) 0.5 /CMM (0.1-1.30); MONOCYTES % (AUTO) 7.5 % (2.0-12.0); NEUTROPHILS # (AUTO) 4.8 /CMM (1.8-8.9); NEUTROPHILS % (AUTO) 75.5 % (43.0-81.0); PLATELET COUNT (AUTO) 171 /CMM (150-450); RDW COEFFICIENT OF VARIATION 16.9 (11.5-15.0); RED BLOOD CELL COUNT(AUTO) 2.69 MIL/uL (4.5-6.0); WHITE BLOOD COUNT (AUTO) 6.4 K/uL (4.3-11.0)
[2018-01-18 12:10] LABS: ALBUMIN 2.4 g/dL (3.4-5.0); BILIRUBIN,TOTAL 0.7 mg/dL (0.2-1.0); CALCIUM, SERUM 8.2 mg/dL (8.5-10.1); POTASSIUM 4.5 mmol/L (3.5-5.1); TOTAL PROTEIN, SERUM 6.1 g/dL (6.4-8.2)
--- NOTE | 2018-01-18 13:00 | NUR ---
HELD BP MEDS HYDRALAZINE DUE TO SCHEDULED DIALYSIS. BP STABLE. 121/80.
[2018-01-18 16:00] VITALS: BP 108/51
--- NOTE | 2018-01-18 17:00 | NUR ---
DIALYSIS COMPLETE. OUTPUT 2L. BP 100/65, PULSE 60. HELD BP MEDS DUE TO LOW BP. PT STABLE.
--- NOTE | 2018-01-18 18:40 | NUR ---
MS RN: CLOSING NOTE PT TOOK ALL MEDICATIONS ON TIME. NO ADVERSE REACTIONS NOTED. A/OX3. ON 2L NC SATING AT 95%. NO DISTRESS NOTED. NO SOB NOTED. NO PAIN NOTED. DIAPER. ANURIC. ABD INCISIONS [address] NO BLEEDING NOTED. NO DRAINING NOTED. HALEY DRAIN IN PLACE. OUTPUT 160ML. BLOODY FLUIDS. R AC #20SL. SITE CLEAR AND PATENT. NO REDNESS OR BLEEDING NOTED. INSULIN GIVEN PER SLIDING SCALE. DIALYSIS COMPLETE. OUTPUT 2000ML. RESTING COMFORTABLY IN BED. CALL LIGHT WITHIN REACH.
--- NOTE | 2018-01-18 19:31 | NUR ---
MS RN OPENING NOTES RECEIVED PT SITTING UPRIGHT IN BED. AWAKE AND RESPONSIVE. RESPIRATIONS ARE EVEN AND UNLABORED, NOT IN ANY ACUTE DISTRESS NOTED. DENIES ANY PAIN AT THIS TIME. IV SITE INTACT, NO INFILTRATION NOTED. SAFETY MEASURES ARE IN PLACE. BED IS IN ITS LOW AND LOCKED POSITION. WILL CONTINUE TO MONITOR THROUGHOUT SHIFT.
[2018-01-18 20:00] VITALS: BP 124/52
[2018-01-18] MEDS: *INSULIN REGULAR(HUMULIN R)HUM 100 UNIT/ML VIAL SQ PRN (21:25)
[2018-01-19] MEDS: ZOSYN IVPB 2.25 G in IV D5W 50ml IV SCH ×4 (05:03→23:58)
--- NOTE | 2018-01-19 06:16 | NUR ---
MS RN CLOSING NOTES ALL DUE MEDS GIVEN, NEEDS MET AND RENDERED. AWAKE AND RESPONSIVE. RESPIRATIONS ARE EVEN AND UNLABORED. DENIES ANY PAIN, NO CHEST PAIN, NO N/V OR SOB. IV SITE INTACT, NO INFILTRATION NOTED. DRESSING KEPT CLEAN AND DRY. SAFETY MEASURES ARE IN PLACE. BED IS IN ITS LOW AND LOCKED POSITION. REMINDED PT TO USE CALL LIGHT WHEN ASSISTANCE IS NEEDED, CALL LIGHT IS LEFT WITHIN REACH. WILL ENDORSE TO NEXT SHIFT FOR CONTINUITY OF CARE.
[2018-01-19] MEDS: BLOOD SUGAR DIAGNOSTIC 1 EACH STRIP VI SCH ×4 (06:34→21:15)
[2018-01-19] MEDS: INSULIN REGULAR, HUMAN 100 UNIT/ML 3 ML VIAL SQ PRN ×3 (06:39→17:05)
[2018-01-19 07:22] LABS: BASOPHILS % (AUTO) 0.4 % (0.0-2.0); EOSINOPHILS % (AUTO) 5.7 % (0.0-6.0); HEMATOCRIT 25 % (39-51); HEMOGLOBIN 8.9 g/dL (13.5-17.5); LYMPHOCYTES % (AUTO) 12.8 % (20.0-44.0); MEAN CORPUSCULAR HGB CONC 35 g/dl (31.0-36.0); MEAN CORPUSCULAR VOLUME 91 fL (80-96); MONOCYTES # (AUTO) 0.7 /CMM (0.1-1.30); NEUTROPHILS # (AUTO) 5.6 /CMM (1.8-8.9); NEUTROPHILS % (AUTO) 72.1 % (43.0-81.0); PLATELET COUNT (AUTO) 183 /CMM (150-450); RDW COEFFICIENT OF VARIATION 16.5 (11.5-15.0); RED BLOOD CELL COUNT(AUTO) 2.75 MIL/uL (4.5-6.0); WHITE BLOOD COUNT (AUTO) 7.8 K/uL (4.3-11.0)
[2018-01-19] MEDS: CHOLECALCIFEROL 1,000 UNIT TABLET (VIT D3) PO SCH (08:08)
[2018-01-19] MEDS: FOLIC ACID 1 MG TABLET PO SCH (08:08)
[2018-01-19] MEDS: ASPIRIN 81 MG TAB.CHEW PO SCH (08:08)
[2018-01-19] MEDS: CALCIUM ACETATE 667 MG TABLET PO SCH ×3 (08:08→16:54)
[2018-01-19] MEDS: ALLOPURINOL 100 MG TABLET PO SCH (08:08)
[2018-01-19] MEDS: HYDROCODONE/APAP 5/325MG 1 EACH TABLET PO PRN ×2 (08:09→17:05)
--- NOTE | 2018-01-19 08:09 | NUR ---
rn notes RECEIVED PATIENT IN THE BED A/O X3/4 SLOVAK SPEAKER, WAS C/O ABDOMINAL PAIN 05/30, ADMINISTERED NARCO 5/325 MG PO PRN PER PATIENT REQUEST, V/S TAKEN STABLE, ALSO ADMINISTERED SCHEDULED MEDICATION, BS-217MG/DL, PATIENT ON O2 2L NC, NO ACUTE RESPIRATORY DISTRESS, IV ACCESS LINE ON RIGHT AC AREA INTACT , RIGHT UPPER CHEST HD CATHETER INTACT. PATIENT HAS ABDOMINAL DRESSING, AND HALEY-35 ML OUTPUT. NEEDS ATTENDED AND ANTICIPATED. CALL LIGHT WITHIN TO REACH, PATIENT USING DIAPER/ URINAL. CALL LIGHT WITHIN TO REACH, CONTINUED MONITORING.
[2018-01-19] MEDS: AMLODIPINE BESYLATE 10 MG TABLET PO SCH (08:13)
[2018-01-19] MEDS: CARVEDILOL 12.5 MG TABLET PO SCH ×2 (08:13→16:59)
[2018-01-19] MEDS: hydrALAZINE HCL 25 MG TABLET PO SCH ×3 (08:13→16:59)
[2018-01-19] MEDS: PANTOPRAZOLE 40 MG TABLET.DR PO SCH (08:14)
--- NOTE | 2018-01-19 10:00 | NUR ---
RN NOTES MEDICATION WERE ADMINISTERED FOR PAIN EFFECTIVE, PATIENT LYING IN THE BED. NO ACUTE DISTRESS, CALL LIGHT WITHIN TO REACH, CONTINUED MONITORING.
[2018-01-19] MEDS ORDERED: AMOX-430 PO (11:35)
[2018-01-19] MEDS ORDERED: HYDR-552 PO (11:35)
--- NOTE | 2018-01-19 13:30 | NUR ---
RN NOTES BS-257 MG/DL COVERAGE GIVEN, ALSO ADMINISTERED SCHEDULED MEDICATION, CLIENT ADVISOR NEXT TO THE BED. CONTINUED MONITORING.
--- NOTE | 2018-01-19 17:05 | NUR ---
RN NOTES BS-196 MG/DL, COVERAGE GIVEN, V/S TAKEN STABLE, ADMINISTERED SCHEDULED MEDICATION, NEEDS ATTENDED AND ANTICIPATED, ASSIST TURN AND REPOSTION Q 2 HR, CALL LIGHT WITHIN TO REACH. ALSO ADMINISTERED NARCO 5/325 MG PO PRN PER PATIENT REQUEST FOR ABDOMINAL PAIN 04/29, CONTINUED MONITORING.
--- NOTE | 2018-01-19 18:30 | NUR ---
rn notes patent in the bed no acute respiratory distress, medication were administered for pain effective,, call light within to reach, continued monitoring. endorsed oncoming nurse for michael.
--- NOTE | 2018-01-19 19:50 | NUR ---
RECEIVED PATIENT AWAKE THE BED A/O X3/4, KOSOVAN SPEAKING, NO SOB, NO ACUTE DISTRESS, BREATHING EVEN AND UNLABORED. DENIES PAIN AND DISCOMFORT. NO S/S OF HYPOGLYCEMIA/HYPERGLYCEMIA, PATIENT ON O2 AT 2L VIA NC AND TOLERATED WELL, IV LINE ON RIGHT AC AREA INTACT AND PATENT, NO S/S OF IV INFILTRATION , RIGHT UPPER CHEST HD CATHETER INTACT. HALEY INTACT AND DRAINING WELL. KEPT CLEAN, DRY AND COMFORTABLE. CALL LIGHT WITHIN TO REACH, PATIENT USING DIAPER/ URINAL. CALL LIGHT WITHIN TO REACH, WILL CONTINUE TO MONITOR.
[2018-01-19] MEDS: *INSULIN REGULAR(HUMULIN R)HUM 100 UNIT/ML VIAL SQ PRN (21:17)
[2018-01-20] MEDS: ZOSYN IVPB 2.25 G in IV D5W 50ml IV SCH ×3 (05:00→18:07)
[2018-01-20] MEDS: BLOOD SUGAR DIAGNOSTIC 1 EACH STRIP VI SCH ×4 (07:12→22:38)
[2018-01-20] MEDS: INSULIN REGULAR, HUMAN 100 UNIT/ML 3 ML VIAL SQ PRN ×2 (07:14→17:15)
--- NOTE | 2018-01-20 07:55 | NUR ---
NO SIGNIFICANT CHANGE NOTED, PATIENT STABLE, ALL DUE MEDS GIVEN ORDERED. ENDORSED TO THE NEXT SHIFT TO CONTINUE TO MONITOR
[2018-01-20 08:00] VITALS: BP 141/63
[2018-01-20] MEDS: CHOLECALCIFEROL 1,000 UNIT TABLET (VIT D3) PO SCH (08:21)
[2018-01-20] MEDS: ASPIRIN 81 MG TAB.CHEW PO SCH (08:21)
[2018-01-20] MEDS: ALLOPURINOL 100 MG TABLET PO SCH (08:22)
[2018-01-20] MEDS: FOLIC ACID 1 MG TABLET PO SCH (08:22)
[2018-01-20] MEDS: CALCIUM ACETATE 667 MG TABLET PO SCH ×3 (08:22→17:14)
[2018-01-20] MEDS: AMLODIPINE BESYLATE 10 MG TABLET PO SCH (08:22)
[2018-01-20] MEDS: CARVEDILOL 12.5 MG TABLET PO SCH ×2 (08:23→17:13)
[2018-01-20] MEDS: PANTOPRAZOLE 40 MG TABLET.DR PO SCH (08:23)
[2018-01-20] MEDS: HYDROCODONE/APAP 5/325MG 1 EACH TABLET PO PRN ×2 (08:30→17:21)
[2018-01-20] MEDS: hydrALAZINE HCL 25 MG TABLET PO SCH ×3 (09:00→17:00)
--- NOTE | 2018-01-20 09:53 | NUR ---
MS RN OPENING NOTES Patient found resting comfortably in bed with no signs or symptoms of acute distress; patient reports no pain at this time. He is AA&Ox4. HALEY drain contains scant amount of serosanguineous drainage; surgical dressing is intact. Bed is locked and in low position, call bella is within reach. Will continue to monitor.
[2018-01-20 11:08] LABS: CALCIUM, SERUM 8.5 mg/dL (8.5-10.1); CREATININE 6.3 mg/dL (0.6-1.3); POTASSIUM 4.5 mmol/L (3.5-5.1)
--- NOTE | 2018-01-20 13:30 | NUR ---
MS RN NOTES Patient received hemodialysis starting at 1100 and ending at 1300. Total output as per dialysis nurse was 0 mL. Vitals signs WNL. Please see notes from dialysis nurse in patient's chart.
[2018-01-20 16:00] VITALS: BP 138/62
[2018-01-20] MEDS ORDERED: hydrALAZINE HCL 25 MG TABLET PO PRN (18:00)
--- NOTE | 2018-01-20 18:09 | NUR ---
MS RN CLOSING NOTES All patient medications administered and prescribed treatments carried out. Patient's vital signs remain WNL, breathing is non-labored, and he is without pain. Surgical dressing was changed and remains clean, dry, and intact. HALEY draining serosanguineous fluid 50 mL this shift. Patient with poor appetite following HD but is otherwise comfortable. Peripheral IV in R AC is patent. Bed in low/locked position, call bella within reach. Care will continue by cleaner laboratory equipment RN.
--- NOTE | 2018-01-20 19:40 | NUR ---
MSRN FULLY AWAKE, CAREGIVER AT BEDSIDE. ASSESSED FOR PAIN , INCISIONAL PAIN TOLERABLE. HALEY DRAIN WITH SCANTY AMOUNT SEROSANGUINOUS DRAINAGE OF THIS TIME. REVIEWED WITH PATIENT CALL LIGHT USE. WELL UNDERSTOOD. LIMITED ICELANDIC, SAWYER CORK SLABS AT BEDSIDE. KEPT COMFORTABLE.
[2018-01-20 20:00] VITALS: BP 118/58
[2018-01-20 20:17] VITALS: BP 118/58
--- NOTE | 2018-01-20 20:21 | NUR ---
MSRN NO FURTHER NEEDS MADE, RESTING QUIETLY.
--- NOTE | 2018-01-20 22:00 | NUR ---
MSRN BS 163, SNACKS PROVIDED. NO OTHER NEEDS MADE.
[2018-01-20] MEDS: *INSULIN REGULAR(HUMULIN R)HUM 100 UNIT/ML VIAL SQ PRN (22:41)
[2018-01-21] MEDS: ZOSYN IVPB 2.25 G in IV D5W 50ml IV SCH ×4 (00:57→17:30)
[2018-01-21] MEDS: BLOOD SUGAR DIAGNOSTIC 1 EACH STRIP VI SCH ×4 (06:16→22:05)
[2018-01-21] MEDS: INSULIN REGULAR, HUMAN 100 UNIT/ML 3 ML VIAL SQ PRN ×3 (06:38→17:21)
--- NOTE | 2018-01-21 06:42 | NUR ---
MSRN BLOOD SUGAR WAS 220, COVERED WITH 6 UNITS OF REGULAR INSULIN SQ PER SLIDING SCALE. REDNESS SACRAL, ZGARD APPLIED. ZOSYN ON PROGRESS. 30 CC FROM HALEY DRAIN.
--- NOTE | 2018-01-21 07:37 | NUR ---
M/S RN - AM Notes Received patient in bed awake, A/O x 4, denies abdominal pain, abdomen soft, no apparent distress seen. HALEY drain in place, no output noted, surgical dressing C/D/I. All needs attended and met. Patient for possible discharge home today if he continues to be stable.
[2018-01-21 08:00] VITALS: BP 127/60
[2018-01-21] MEDS: CALCIUM ACETATE 667 MG TABLET PO SCH ×3 (08:25→17:20)
[2018-01-21] MEDS: ALLOPURINOL 100 MG TABLET PO SCH (08:25)
[2018-01-21] MEDS: ASPIRIN 81 MG TAB.CHEW PO SCH (08:25)
[2018-01-21] MEDS: PANTOPRAZOLE 40 MG TABLET.DR PO SCH (08:25)
[2018-01-21] MEDS: CHOLECALCIFEROL 1,000 UNIT TABLET (VIT D3) PO SCH (08:25)
[2018-01-21] MEDS: FOLIC ACID 1 MG TABLET PO SCH (08:25)
[2018-01-21] MEDS: AMLODIPINE BESYLATE 10 MG TABLET PO SCH (08:27)
[2018-01-21] MEDS: CARVEDILOL 12.5 MG TABLET PO SCH ×2 (08:27→17:20)
[2018-01-21] MEDS: HYDROCODONE/APAP 5/325MG 1 EACH TABLET PO PRN (11:59)
[2018-01-21 16:00] VITALS: BP 136/62
--- NOTE | 2018-01-21 18:05 | NUR ---
M/S RN - End Notes No new events seen. HALEY drain with 70 cc serosang output, abdomen soft, c/o abdominal pain, [place] given once this shift with relief. Awaiting surgical clearance from Dr. De Anda for discharge. Will continue with current medical management.
--- NOTE | 2018-01-21 19:25 | NUR ---
RN MS OPENING NOTES RECEIVED PATIENT LYING COMFORTABLY IN BED, ALERT AND ORIENTED X 3, VERBALLY RESPONSIVE IN NO ACUTE DISTRESS, NO SOB, BREATHING EVEN AND UNLABORED, NO C/O PAIN AT THIS TIME. ALL PATIENT'S NEEDS ATTENDED TO. PLACED CALL LIGHT WITHIN EASY REACH. WILL CONTINUE TO MONITOR.
[2018-01-21 20:00] VITALS: BP 134/61
[2018-01-21] MEDS: MORPHINE SULFATE INJ 4 MG/ML DISP.SYRIN IV PRN (22:06)
[2018-01-22] MEDS: ZOSYN IVPB 2.25 G in IV D5W 50ml IV SCH ×4 (00:07→18:00)
[2018-01-22] MEDS: HYDROCODONE/APAP 5/325MG 1 EACH TABLET PO PRN (05:42)
--- NOTE | 2018-01-22 06:39 | NUR ---
RN MS CLOSING NOTES PT IN BED, ASLEEP BUT EASILY AROUSABLE, NOTED WITH NO SOB, BREATHING EVEN AND UNLABORED, IN NO ACUTE DISTRESS. ALL PATIENT'S NEEDS ATTENDED TO THROUGHOUT THE SHIFT, HALEY DRAIN WITH 75CC OF SANGUINEOUS OUTPUT. ALL PATIENT'S NEEDS ATTENDED TO THROUGHOUT THE SHIFT, KEPT PT CLEAN AND DRY, SAFE AND COMFORTABLE. WILL ENDORSE TO AM SHIFT NURSE FOR CONTINUITY OF CARE.
[2018-01-22] MEDS: BLOOD SUGAR DIAGNOSTIC 1 EACH STRIP VI SCH ×3 (06:43→17:21)
[2018-01-22] MEDS: INSULIN REGULAR, HUMAN 100 UNIT/ML 3 ML VIAL SQ PRN ×3 (07:23→17:23)
[2018-01-22 08:00] VITALS: BP 123/61
--- NOTE | 2018-01-22 08:00 | NUR ---
M/S RN - AM Notes Received patient in bed awake, A/O x 4, denies abdominal pain, abdomen soft, no apparent distress seen. HLAEY drain in place, dressing changed. Patient scheduled for HD treatment today. All needs attended and met. Patient for discharge home today after HD treatment, cleared by Dr. De Anda for discharge. Patient updated on treatment plan. Will continue with current medical management.
[2018-01-22 08:07] LABS: BASOPHILS % (AUTO) 0.3 % (0.0-2.0); EOSINOPHILS % (AUTO) 6.6 % (0.0-6.0); HEMATOCRIT 24 % (39-51); HEMOGLOBIN 8.4 g/dL (13.5-17.5); LYMPHOCYTES # (AUTO) 1.1 /CMM (0.8-4.8); LYMPHOCYTES % (AUTO) 11.1 % (20.0-44.0); MEAN CORPUSCULAR HGB CONC 36 g/dl (31.0-36.0); MEAN CORPUSCULAR VOLUME 91 fL (80-96); MONOCYTES # (AUTO) 0.8 /CMM (0.1-1.30); MONOCYTES % (AUTO) 8.2 % (2.0-12.0); NEUTROPHILS # (AUTO) 7.1 /CMM (1.8-8.9); NEUTROPHILS % (AUTO) 73.8 % (43.0-81.0); PLATELET COUNT (AUTO) 195 /CMM (150-450); RDW COEFFICIENT OF VARIATION 17.3 (11.5-15.0); RED BLOOD CELL COUNT(AUTO) 2.61 MIL/uL (4.5-6.0); WHITE BLOOD COUNT (AUTO) 9.7 K/uL (4.3-11.0)
[2018-01-22 08:26] LABS: CALCIUM, SERUM 8.4 mg/dL (8.5-10.1); CREATININE 6.5 mg/dL (0.6-1.3); MAGNESIUM 2.2 mg/dL (1.8-2.4); PHOSPHORUS 6.2 mg/dL (2.5-4.9); POTASSIUM 4.6 mmol/L (3.5-5.1)
[2018-01-22] MEDS: PANTOPRAZOLE 40 MG TABLET.DR PO SCH (08:43)
[2018-01-22] MEDS: ALLOPURINOL 100 MG TABLET PO SCH (08:44)
[2018-01-22] MEDS: CALCIUM ACETATE 667 MG TABLET PO SCH ×3 (08:44→17:21)
[2018-01-22] MEDS: FOLIC ACID 1 MG TABLET PO SCH (08:44)
[2018-01-22] MEDS: ASPIRIN 81 MG TAB.CHEW PO SCH (08:44)
[2018-01-22] MEDS: CHOLECALCIFEROL 1,000 UNIT TABLET (VIT D3) PO SCH (08:44)
[2018-01-22] MEDS: AMLODIPINE BESYLATE 10 MG TABLET PO SCH (08:45)
[2018-01-22] MEDS: CARVEDILOL 12.5 MG TABLET PO SCH ×2 (08:45→17:21)
--- NOTE | 2018-01-22 08:45 | NUR ---
M/S RN - BP meds Blood pressure meds held due to patient scheduled for HD treatment today, NQ=438/61 HR= 74.
--- NOTE | 2018-01-22 09:15 | NUR ---
MS RN NOTES Surgical dressing on right side of the abdomen found with sanguineous drainage. Dressing removed and changed with clean surgical gauze. Skin surrounding the surgical incision was found to be clean, dry, and intact with no signs/Sx of infection (no erythema, no swelling, no warmth, no pain). Patient is resting comfortably in bed and reports minimal pain of 2/10. Will continue to monitor.
[2018-01-22] MEDS ORDERED: EPOETIN ALFA (10,000 UNIT) 10,000 UNIT/ML VIAL SQ ONE (10:00)
--- NOTE | 2018-01-22 13:30 | NUR ---
M/S RN - HD treatment Patient tolerated HD treatment well, 2 liters removed. BP stable.
--- NOTE | 2018-01-22 15:00 | NUR ---
M/S RN - Notes Patient stated his caregiver Diana will be here around 17:00 to provide transportation. Md and CN made aware.
[2018-01-22 16:00] VITALS: BP 142/66
[2018-01-22 17:21] VITALS: BP 142/66
--- NOTE | 2018-01-22 18:51 | NUR ---
M/S RN - Discharge Patient feeling better, discharged home in stable condition. Reviewed discharge instructions with pt and he verbalized full understanding of all teachings including medication management and resume his outpt HD treatment (MWF). Pt made aware that he needs to f/u with Dr. De Anda on Saturday 01/27 or Saturday01/28/18 for HALEY drain management. All belongings with pt and he denies any missing items. VSS, denies pain, no c/o nausea and vomiting, no apparent distress seen. Heplock removed on the RAC with catheter tip intact, no redness and no swelling noted at the site. Skin is intact except for 3 lap incision sites, photo taken, HALEY drain in place, with 30 cc of serosang drainage noted. Discharge papers signed and copy was given per protocol. Accompanied to the lobby and transported by private car.
== END 2018-01-22 18:51 | disposition home or self-care (01) | DRG 263 ==
LOC: ER 11:02 → EDSEX 11:02 → MED 14:31
PROVIDERS: ADMIT Internal Medicine; ATTEND Internal Medicine
PROC: 0FT44ZZ Resection of Gallbladder, Percutaneous Endoscopic Approach (ICD-10-PCS; principal; 2018-01-15 16:00)
PROC: 5A1D70Z Performance of Urinary Filtration, Intermittent, Less than 6 Hours Per Day (ICD-10-PCS; principal; 2018-01-15 16:00)
PROC: 30233N1 Transfusion of Nonautologous Red Blood Cells into Peripheral Vein, Percutaneous Approach (ICD-10-PCS; 2018-01-17)
PROC: 5A1D70Z Performance of Urinary Filtration, Intermittent, Less than 6 Hours Per Day (ICD-10-PCS; 2018-01-17)
PROC: 5A1D70Z Performance of Urinary Filtration, Intermittent, Less than 6 Hours Per Day (ICD-10-PCS; 2018-01-18)
PROC: 5A1D70Z Performance of Urinary Filtration, Intermittent, Less than 6 Hours Per Day (ICD-10-PCS; 2018-01-20)
PROC: 5A1D70Z Performance of Urinary Filtration, Intermittent, Less than 6 Hours Per Day (ICD-10-PCS; 2018-01-22)
DX: K81.0 Acute cholecystitis (principal); K66.1 Hemoperitoneum; N18.6 End stage renal disease; E11.22 Type 2 diabetes mellitus with diabetic chronic kidney disease; I12.0 Hypertensive chronic kidney disease with stage 5 chronic kidney disease or end stage renal disease; Z99.2 Dependence on renal dialysis; D63.8 Anemia in other chronic diseases classified elsewhere; M81.0 Age-related osteoporosis without current pathological fracture; E87.5 Hyperkalemia; Z79.4 Long term (current) use of insulin; E83.9 Disorder of mineral metabolism, unspecified
CPT/HCPCS: 36415; 71045-TC; 76705-TC; 80048-TC; 80053-TC; 80076-TC; 81000-TC; 82962-TC; 83690-TC; 83735-TC; 84100-TC; 84484-TC; 85025-TC; 85730-TC; 86850-TC; 86921-TC; 87070-TC; 87075-TC; 87081-TC; 87086-TC; 88304-TC; 88305-TC; 90935-TC; 93307-TC; 94799-TC; A4216; A4606; A6402; A6403; J0885; J1100; J1815; J2270; J2405; J2543; J2710; J3490; J7030; J7050; J7060; P9016-BL; P9047; Z7610

== ENCOUNTER 2024-07-06 12:57 | Inpatient (IN) | payer MEDICARE, OTHER ==
[~2024-07-06] VITALS: Ht 167.6 cm; Wt 69.4 kg
[~2024-07-06 12:57] MED LIST: ALLO100T PO; AMLO-213 PO; AMOX-430 PO; ASPI-1169 PO; CALC667C6 PO; CARV12.52 PO; CHOL200026 PO; FOLI1TAB16 PO; FURO40TA5 PO; HYDR-4076 PO; HYDR-4384 PO; INSU100I26 SQ; PANT40TA49 PO
[2024-07-06] MEDS ORDERED: hydrALAZINE HCL IV 20 MG VIAL IV PRN (13:30)
[2024-07-06] MEDS ORDERED: DEXTROSE 50%-WATER 50 ML DISP.SYRIN IV PRN (13:30)
[2024-07-06] MEDS ORDERED: ONDANSETRON HCL/PF 4 MG/2 ML VIAL IVP PRN (13:30)
[2024-07-06] MEDS ORDERED: MORPHINE SULFATE INJ 2 MG/ML DISP.SYRIN IV PRN (13:30)
[2024-07-06] MEDS ORDERED: HYDR-3973 PO (14:10)
[2024-07-06] MEDS ORDERED: DOCU100C36 PO (14:10)
[2024-07-06] MEDS ORDERED: ACET-73 PO (14:10)
[2024-07-06] MEDS ORDERED: SENN8.6T19 PO (14:10)
[2024-07-06] MEDS ORDERED: HYDR-4077 PO (14:10)
[2024-07-06] MEDS ORDERED: HYDR-3972 PO (14:10)
[2024-07-06] MEDS ORDERED: FERR325T30 PO (14:10)
[2024-07-06] MEDS ORDERED: INSU100I4 SQ (14:10)
[2024-07-06] MEDS ORDERED: TAMS-12 PO (14:10)
[2024-07-06] MEDS ORDERED: FOLI1TAB34 PO (14:10)
[2024-07-06] MEDS ORDERED: BISA10SU11 RC (14:10)
[2024-07-06] MEDS ORDERED: SEVE800T8 PO (14:10)
[2024-07-06] MEDS ORDERED: DULA1.5P SQ (14:10)
[2024-07-06] MEDS ORDERED: POLY17PO4 PO (14:10)
[2024-07-06] MEDS ORDERED: ONDA4TAB11 PO (14:10)
[2024-07-06] MEDS ORDERED: ACET325T53 PO (14:10)
[2024-07-06] MEDS: CARVEDILOL 12.5 MG TABLET PO SCH (17:00)
[2024-07-06] MEDS: CALCIUM ACETATE 667 MG CAP/TAB PO SCH (17:00)
[2024-07-06] MEDS: hydrALAZINE HCL 25 MG TABLET PO SCH (17:00)
[2024-07-06] MEDS: BLOOD SUGAR DIAGNOSTIC 1 EACH STRIP VI SCH (17:30)
[2024-07-06 20:00] VITALS: BP 191/89; TEMP 98; O2SAT 97
[2024-07-06] MEDS: HEPARIN SODIUM, PORCINE 5000 UNITS/1 ML VIAL SQ SCH (21:00)
[2024-07-06] MEDS: INSULIN GLARGINE, 100 UNIT/ML CARTRIDGE SQ SCH (22:00)
[2024-07-07] MEDS: CARVEDILOL 6.25 MG TABLET PO ONE (00:36)
[2024-07-07] MEDS: *INSULIN REGULAR(HUMULIN R)HUM 100 UNIT/ML VIAL SQ PRN (01:26)
[2024-07-07 06:51] LABS: BASOPHILS # (AUTO) 0.1 K/uL (0.0-0.2); BASOPHILS % (AUTO) 0.9 % (0.0-2.0); EOSINOPHILS # (AUTO) 0.2 K/uL (0.0-0.7); EOSINOPHILS % (AUTO) 2.3 % (0.0-6.0); HEMATOCRIT 30 % (39-51); HEMOGLOBIN 10.4 g/dL (13.5-17.5); LYMPHOCYTES # (AUTO) 1.2 K/uL (0.8-4.8); LYMPHOCYTES % (AUTO) 17.4 % (20.0-44.0); MEAN CORPUSCULAR HEMOGLOBIN 35 PG (26.0-33.0); MEAN CORPUSCULAR HGB CONC 34 g/dl (31.0-36.0); MEAN CORPUSCULAR VOLUME 103 fL (80-96); MONOCYTES # (AUTO) 0.6 K/uL (0.1-1.30); MONOCYTES % (AUTO) 9.4 % (2.0-12.0); NEUTROPHILS # (AUTO) 4.8 K/uL (1.8-8.9); PLATELET COUNT (AUTO) 138 K/uL (150-450); RED BLOOD CELL COUNT(AUTO) 2.94 MIL/uL (4.5-6.0); RED CELL DISTRIBUTION WIDTH 12.7 % (11.5-15.0); WHITE BLOOD COUNT (AUTO) 6.9 K/uL (4.3-11.0)
[2024-07-07 07:00] VITALS: BP 162/73; TEMP 98.4; O2SAT 97
[2024-07-07] MEDS: INSULIN REGULAR, HUMAN 100 UNIT/ML 3 ML VIAL SQ PRN (07:01)
[2024-07-07 07:38] LABS: ALBUMIN 3.4 g/dL (3.4-5.0); BILIRUBIN,TOTAL 0.6 mg/dL (0.2-1.0); MAGNESIUM 3.5 mg/dL (1.8-2.4); PHOSPHORUS 6.6 mg/dL (2.5-4.9); POTASSIUM 5.7 mmol/L (3.5-5.1); TOTAL PROTEIN, SERUM 6.5 g/dL (6.4-8.2)
[2024-07-07] MEDS: PANTOPRAZOLE 40 MG TABLET.DR PO SCH (08:29)
[2024-07-07] MEDS: FOLIC ACID 1 MG TABLET PO SCH (08:29)
[2024-07-07] MEDS: ASPIRIN 81 MG TAB.CHEW PO SCH (08:29)
[2024-07-07] MEDS: ALLOPURINOL 100 MG TABLET PO SCH (08:30)
[2024-07-07] MEDS: AMLODIPINE BESYLATE 10 MG TABLET PO SCH (08:33)
[2024-07-07] MEDS: FUROSEMIDE 40 MG TABLET PO SCH (08:39)
[2024-07-07] MEDS: SEVELAMER CARBONATE 800 MG TABLET PO SCH (13:27)
[2024-07-07 16:00] VITALS: BP 139/51; TEMP 98.6; O2SAT 96
[2024-07-07 20:00] VITALS: BP 119/35; TEMP 98.1; O2SAT 95
[2024-07-07] MEDS: TAMSULOSIN 0.4 MG CAP.SR.24H PO SCH (21:03)
[2024-07-08 06:32] LABS: BASOPHILS % (AUTO) 0.8 % (0.0-2.0); EOSINOPHILS # (AUTO) 0.2 K/uL (0.0-0.7); EOSINOPHILS % (AUTO) 3.8 % (0.0-6.0); HEMATOCRIT 30 % (39-51); HEMOGLOBIN 10.3 g/dL (13.5-17.5); LYMPHOCYTES # (AUTO) 1.2 K/uL (0.8-4.8); LYMPHOCYTES % (AUTO) 20.8 % (20.0-44.0); MEAN CORPUSCULAR HEMOGLOBIN 36 PG (26.0-33.0); MEAN CORPUSCULAR HGB CONC 34 g/dl (31.0-36.0); MEAN CORPUSCULAR VOLUME 104 fL (80-96); MONOCYTES # (AUTO) 0.5 K/uL (0.1-1.30); MONOCYTES % (AUTO) 9.6 % (2.0-12.0); NEUTROPHILS # (AUTO) 3.6 K/uL (1.8-8.9); PLATELET COUNT (AUTO) 140 K/uL (150-450); RED BLOOD CELL COUNT(AUTO) 2.87 MIL/uL (4.5-6.0); RED CELL DISTRIBUTION WIDTH 12.6 % (11.5-15.0); WHITE BLOOD COUNT (AUTO) 5.6 K/uL (4.3-11.0)
[2024-07-08 07:00] VITALS: BP 140/56; TEMP 98.4; O2SAT 97
[2024-07-08 07:01] LABS: CALCIUM, SERUM 9.3 mg/dL (8.5-10.1); MAGNESIUM 2.9 mg/dL (1.8-2.4); POTASSIUM 5.9 mmol/L (3.5-5.1)
[2024-07-08 07:28] LABS: CREATININE 10.9 mg/dL (0.6-1.3)
[2024-07-08] MEDS: SODIUM POLYSTYRENE SULFONATE 15 G/60 ML BOTTLE PO ONE ×2 (07:55→10:33)
[2024-07-08] MEDS: FERROUS SULFATE (325 MG) 325 MG/TAB TABLET PO SCH (09:00)
[2024-07-08] MEDS: ACETAMINOPHEN 325 MG TABLET PO PRN (11:58)
[2024-07-08] MEDS: HALOPERIDOL LACTATE INJ 5 MG/ML VIAL IM PRN (17:51)
[2024-07-08 20:00] VITALS: BP 180/61; TEMP 97.7; O2SAT 99
[2024-07-08 22:00] VITALS: BP 173/55; TEMP 97.7; O2SAT 98
[2024-07-09 08:00] VITALS: BP 184/64; TEMP 98.4; O2SAT 98
[2024-07-09 12:44] VITALS: BP 162/63; TEMP 97.7; O2SAT 99
[2024-07-09] MEDS: LIDOCAINE 5% (PATCH) 1 EA PATCH TP SCH (17:22)
[2024-07-09] MEDS: HALOPERIDOL 1 MG TABLET PO SCH (18:30)
[2024-07-09 20:00] VITALS: BP 181/73; TEMP 98.1; O2SAT 97
[2024-07-09 21:46] LABS: BASOPHILS % (AUTO) 0.7 % (0.0-2.0); EOSINOPHILS # (AUTO) 0.1 K/uL (0.0-0.7); EOSINOPHILS % (AUTO) 1.4 % (0.0-6.0); HEMATOCRIT 29 % (39-51); HEMOGLOBIN 10.2 g/dL (13.5-17.5); LYMPHOCYTES # (AUTO) 0.8 K/uL (0.8-4.8); LYMPHOCYTES % (AUTO) 13.8 % (20.0-44.0); MEAN CORPUSCULAR HEMOGLOBIN 35 PG (26.0-33.0); MEAN CORPUSCULAR HGB CONC 35 g/dl (31.0-36.0); MEAN CORPUSCULAR VOLUME 101 fL (80-96); MONOCYTES # (AUTO) 0.6 K/uL (0.1-1.30); MONOCYTES % (AUTO) 10.7 % (2.0-12.0); NEUTROPHILS # (AUTO) 4.3 K/uL (1.8-8.9); NEUTROPHILS % (AUTO) 73.4 % (43.0-81.0); PLATELET COUNT (AUTO) 146 K/uL (150-450); RED BLOOD CELL COUNT(AUTO) 2.89 MIL/uL (4.5-6.0); RED CELL DISTRIBUTION WIDTH 12.4 % (11.5-15.0); WHITE BLOOD COUNT (AUTO) 5.9 K/uL (4.3-11.0)
[2024-07-09 22:00] LABS: ALBUMIN 3.6 g/dL (3.4-5.0); BILIRUBIN,TOTAL 0.5 mg/dL (0.2-1.0); CALCIUM, SERUM 8.3 mg/dL (8.5-10.1); CREATININE 3.5 mg/dL (0.6-1.3); POTASSIUM 3.1 mmol/L (3.5-5.1); TOTAL PROTEIN, SERUM 6.7 g/dL (6.4-8.2)
[2024-07-10 06:50] LABS: BASOPHILS % (AUTO) 0.6 % (0.0-2.0); EOSINOPHILS # (AUTO) 0.1 K/uL (0.0-0.7); EOSINOPHILS % (AUTO) 2.5 % (0.0-6.0); HEMATOCRIT 29 % (39-51); HEMOGLOBIN 10.1 g/dL (13.5-17.5); LYMPHOCYTES # (AUTO) 1.2 K/uL (0.8-4.8); LYMPHOCYTES % (AUTO) 20.2 % (20.0-44.0); MEAN CORPUSCULAR HEMOGLOBIN 35 PG (26.0-33.0); MEAN CORPUSCULAR HGB CONC 35 g/dl (31.0-36.0); MEAN CORPUSCULAR VOLUME 101 fL (80-96); MONOCYTES # (AUTO) 0.8 K/uL (0.1-1.30); MONOCYTES % (AUTO) 13.4 % (2.0-12.0); NEUTROPHILS # (AUTO) 3.7 K/uL (1.8-8.9); NEUTROPHILS % (AUTO) 63.3 % (43.0-81.0); PLATELET COUNT (AUTO) 148 K/uL (150-450); RED BLOOD CELL COUNT(AUTO) 2.89 MIL/uL (4.5-6.0); RED CELL DISTRIBUTION WIDTH 12.6 % (11.5-15.0); WHITE BLOOD COUNT (AUTO) 5.9 K/uL (4.3-11.0)
[2024-07-10 07:06] LABS: ALBUMIN 3.2 g/dL (3.4-5.0); BILIRUBIN,TOTAL 0.5 mg/dL (0.2-1.0); CALCIUM, SERUM 8.5 mg/dL (8.5-10.1); MAGNESIUM 2.4 mg/dL (1.8-2.4); POTASSIUM 3.8 mmol/L (3.5-5.1); TOTAL PROTEIN, SERUM 6.3 g/dL (6.4-8.2)
[2024-07-10 08:00] VITALS: BP 131/96; TEMP 97.8; O2SAT 98
[2024-07-10] MEDS: hydrALAZINE HCL 25 MG TABLET PO SCH (09:26)
[2024-07-10] MEDS ORDERED: HALO2TAB PO (12:35)
[2024-07-10 16:00] VITALS: BP 141/66; TEMP 98.6; O2SAT 98
[2024-07-10 16:30] VITALS: BP 141/66
== END 2024-07-10 17:25 | DRG 640 ==
LOC: ER 13:01 → MED 13:58
PROVIDERS: ADMIT Internal Medicine; ATTEND Nurse Practitioner Family
PROC: 5A1D70Z Performance of Urinary Filtration, Intermittent, Less than 6 Hours Per Day (ICD-10-PCS; principal; 2024-07-06)
DX: E87.79 Other fluid overload (principal); N18.6 End stage renal disease; I12.0 Hypertensive chronic kidney disease with stage 5 chronic kidney disease or end stage renal disease; F05 Delirium due to known physiological condition; R62.7 Adult failure to thrive; E11.22 Type 2 diabetes mellitus with diabetic chronic kidney disease; Z99.2 Dependence on renal dialysis; Z91.158 Patient's noncompliance with renal dialysis for other reason; E83.41 Hypermagnesemia; D63.1 Anemia in chronic kidney disease; F29 Unspecified psychosis not due to a substance or known physiological condition; E87.5 Hyperkalemia; N40.0 Benign prostatic hyperplasia without lower urinary tract symptoms; D63.8 Anemia in other chronic diseases classified elsewhere; N25.0 Renal osteodystrophy; F39 Unspecified mood [affective] disorder; M89.8X9 Other specified disorders of bone, unspecified site; Z91.51 Personal history of suicidal behavior; Z68.24 Body mass index [BMI] 24.0-24.9, adult
CPT/HCPCS: 36415; 80048-TC; 80053-TC; 82607-TC; 82728-TC; 82962-TC; 83540-TC; 83735-TC; 83970; 84100-TC; 85025-TC; 86706; 87340; 90935-TC; A4223; A6253; A6403; G0378; J1630; J1644; J1815; J7030

== ENCOUNTER 2024-08-05 16:11 | Emergency (ER) | payer MEDICARE, OTHER ==
[~2024-08-05] VITALS: Ht 175.3 cm; Wt 69.4 kg
[2024-08-05 16:11] VITALS: BP 141/56; TEMP 98.6; O2SAT 95
[~2024-08-05 16:11] MED LIST changes: +ACET-73 PO; +ACET325T53 OP; -ALLO100T PO; -AMLO-213 PO; -AMOX-430 PO; +BISA10SU11 RC; -CALC667C6 PO; -CARV12.52 PO; +DOCU100C36 PO; +DULA1.5P SQ; +FERR325T30 PO; -FOLI1TAB16 PO; +FOLI1TAB34 PO; -FURO40TA5 PO; +HALO2TAB PO; +HYDR-3972 PO; +HYDR-3973 PO; -HYDR-4076 PO; +HYDR-4077 PO; -HYDR-4384 PO; +INSU100I4 SQ; +ONDA4TAB11 PO; +POLY17PO4 PO; +SENN8.6T19 PO; +SEVE800T8 PO; +TAMS-12 PO
[2024-08-05] MEDS ORDERED: ALLO100T PO (17:26)
[2024-08-05] MEDS ORDERED: INSU100V3 SQ (17:26)
[2024-08-05] MEDS ORDERED: HYDR-4077 PO (17:26)
[2024-08-05] MEDS ORDERED: CARV12.52 PO (17:26)
[2024-08-05] MEDS ORDERED: HALO1TAB5 PO (17:26)
[2024-08-05] MEDS ORDERED: GLUC1KIT IJ (17:26)
[2024-08-05] MEDS ORDERED: TRAM50TA2 PO (17:26)
[2024-08-05] MEDS ORDERED: CALC667T2 PO ×2 (17:26)
[2024-08-05] MEDS ORDERED: GELATIN SPONGE,ABSORBABLE 1 EA SPONGE TP ONE (18:51)
== END 2024-08-05 20:54 ==
LOC: ER 16:30
DX: T82.838A Hemorrhage due to vascular prosthetic devices, implants and grafts, initial encounter (principal); I12.0 Hypertensive chronic kidney disease with stage 5 chronic kidney disease or end stage renal disease; E11.22 Type 2 diabetes mellitus with diabetic chronic kidney disease; N18.6 End stage renal disease; Z79.4 Long term (current) use of insulin; Z79.899 Other long term (current) drug therapy; Z99.2 Dependence on renal dialysis; Z86.79 Personal history of other diseases of the circulatory system; Z87.438 Personal history of other diseases of male genital organs; Z87.448 Personal history of other diseases of urinary system; Y84.8 Other medical procedures as the cause of abnormal reaction of the patient, or of later complication, without mention of misadventure at the time of the procedure; Y92.89 Other specified places as the place of occurrence of the external cause